=== PATIENT | male | born 1980 | race Native Hawaiian/Other Pacific Islander ===

== ENCOUNTER 2018-11-19 09:46 | Emergency (ER) | payer OTHER ==
[2018-11-19 09:58] VITALS: BP 139/115
[2018-11-19 10:29] LABS: Basophils % (Auto) 0.4 % (0.0-1.8); Eosinophils # (Auto) 0.1 K/mm3 (0.0-0.4); Eosinophils % (Auto) 0.8 % (0.0-4.3); Hematocrit 51.8 % (35.5-45.6); Hemoglobin 17.9 gm/dl (11.8-15.2); Lymphocytes # (Auto) 1.8 K/mm3 (1.2-5.4); Lymphocytes % (Auto) 18.3 % (13.4-35.0); Mean Corpuscular HGB Conc 35 % (32-34); Mean Corpuscular Volume 90 fl (84-94); Monocytes # (Auto) 0.5 K/mm3 (0.0-0.8); Monocytes % (Auto) 4.7 % (0.0-7.3); Platelet Count 239 K/mm3 (140-440); Red Blood Count 5.74 M/mm3 (3.65-5.03); Red Cell Distribution Width 13.2 % (13.2-15.2)
[2018-11-19] MEDS ORDERED: TORADOL IV ONE (10:32)
[2018-11-19] MEDS ORDERED: MORPHINE IV ONE (10:33)
--- NOTE | 2018-11-19 10:39 | Emergency Department Report ---
HPI - General Chief Complaint: Abdominal Pain Time Seen by Provider: 11/19/18 10:09 - HPI HPI: 38-year-old male presents to the emergency department, driving himself in to be seen, with complaint of some left mid back pain, left flank pain that has radiat ed around towards his abdomen. This started this morning and is currently 10 out of 10 in intensity. He denies any fever, nausea or vomiting, dysuria, hematuria. He denies any past medical history. He has not taken anything for his symptoms prior to arrival today. No primary care physician. ED Past Medical Hx - Social History Smoking Status: Never Smoker Substance Use Type: None - Medications Home Medications: Home Medications Medication Instructions Recorded Confirmed Last Taken Type Ibuprofen [Motrin 800 MG tab] 800 mg PO Q8HR PRN #20 tablet 11/19/18 Unknown Rx Sulfamethoxazole/Trimethoprim 1 each PO BID #10 tablet 11/19/18 Unknown Rx [Bactrim DS TAB] Tamsulosin [Flomax] 0.4 mg PO QDAY #5 cap 11/19/18 Unknown Rx ED Review of Systems ROS: Stated complaint: FLANK PAIN/LEFT SIDE Other details as noted in HPI Comment: All other systems reviewed and negative Constitutional: denies: chills, fever Respiratory: denies: cough, shortness of breath Cardiovascular: denies: chest pain, palpitations Gastrointestinal: abdominal pain. denies: nausea, vomiting Genitourinary: denies: dysuria, discharge Musculoskeletal: back pain. denies: arthralgia Skin: denies: rash, lesions Neurological: denies: headache, weakness Physical Exam - Physical Exam Vital Signs: Vital Signs 11/19/18 09:56 Temperature 98.1 F Pulse Rate 89 Respiratory 18 Rate Blood Pressure 139/115 O2 Sat by Pulse 96 Oximetry Physical Exam: GENERAL: The patient is well-developed well-nourished. HENT: Normocephalic. Atraumatic. Patient has moist mucous membranes. EYES: Extraocular motions are intact. NECK: Supple. Trachea is midline. CHEST/LUNGS: Clear to auscultation. There is no respiratory distress noted. HEART/CARDIOVASCULAR: Regular. There is no tachycardia. There is no murmur. ABDOMEN: Abdomen is soft. Unable to reproduce the patient's left-sided abdominal and flank pain to palpation. No guarding. Patient has normal bowel sounds. There is no abdominal distention. SKIN: Skin is warm and dry. NEURO: The patient is awake, alert, and oriented. The patient is cooperative. The patient has no focal neurologic deficits. The patient has normal speech. MUSCULOSKELETAL: There is no tenderness or deformity. There is no evidence of acute injury. ED Course Vital Signs 11/19/18 09:56 Temperature 98.1 F Pulse Rate 89 Respiratory 18 Rate Blood Pressure 139/115 O2 Sat by Pulse 96 Oximetry ED Medical Decision Making - Lab Data Result diagrams: 11/19/18 10:15 11/19/18 10:15 - Radiology Data Radiology results: report reviewed CT ABDOMEN AND PELVIS WITHOUT CONTRAST HISTORY: left flank pain COMPARISON: None. TECHNIQUE: Axial CT images were obtained through the abdomen and pelvis without IV contrast. Sagittal and coronal reformatted images. All CT scans at this location are performed using CT dose r eduction for ALARA by means of automated exposure control. FINDINGS: CT ABDOMEN: Lung Bases: Clear. Liver: Moderate diffuse fatty infiltration is noted throughout the liver. No enlargement or obvious mass. Biliary: No significant abnormality. Spleen: No significant abnormality. Unenlarged. Pancreas: No significant abnormality. Adrenals: No significant abnormality. Kidneys: A 3.3 mm calculus is identified in the distal left ureter. There is minimal upstream left hydronephrosis. No other renal or ureteral stones are identified. The kidneys are unremarkable. No cystic disease or mass is appreciated. Lymphatics: No lymphadenopathy. Vasculature: No significant abnormality. Bowel/Peritoneum: No significant abnormality. No free air. No free fluid. Normal appendix. CT PELVIS: : No significant abnormality. Osseous Structures: No significant abnormality. Additional Findings: None IMPRESSION: 3.3 mm distal left ureteral stone, minimally obstructing. Hepatic steatosis. - Medical Decision Making Patient presented with some acute left-sided mid back pain, left flank pain and left-sided abdominal pain. Labs show significant microscopic hematuria. He has some elevated liver enzymes. CT scan of the abdomen and pelvis without contrast was done that showed a 3.3 mm distal left ureteral stone that is minimally obstructing. Patient was given a dose of pain medication and anti- inflammatory. This did help with his discomfort. Vital signs stable throughout his ED course. With a kidney stone of this size, patient has a very high percent chance of passing the stone. He'll be discharged home with a prescription for Flomax, a short course of antibiotics, ibuprofen. He will be given a referral for urology and they strainer for his urine. He will return to the ER with any worsening of symptoms or any acute distress. - Differential Diagnosis nephrolithiasis, pyelonephritis, diverticulitis, shingles Critical Care Time: No Critical care attestation.: If time is entered above; I have spent that time in minutes in the direct care of this critically ill patient, excluding procedure time. ED Disposition Clinical Impression: Nephrolithiasis, Flank pain Hematuria Qualifiers: Hematuria type: unspecified type Qualified Code(s): R31.9 - Hematuria, unspecified Disposition: DC- TO HOME OR SELFCARE Is pt being admited?: No Condition: Stable Instructions: Kidney Stones (ED), Renal Colic (ED), How to Strain Your Urine (ED) Additional Instructions: Please follow up with a primary care physician in the next few days. I am giving you a referral for a local urologist, Dr. Sanders, to follow-up regarding your kidney stone. Return to the emergency Department with any worsening of your symptoms or any acute distress. Prescriptions: Sulfamethoxazole/Trimethoprim [Bactrim DS TAB] 1 each PO BID #10 tablet Tamsulosin [Flomax] 0.4 mg PO QDAY #5 cap Ibuprofen [Motrin 800 MG tab] 800 mg PO Q8HR PRN #20 tablet PRN Reason: Pain , Severe (7-10) Referrals: TORO SANDERS MD [Staff Physician] - 2-3 Days [facility] [Outside] - 2-3 Days Time of Disposition: 12:31
[2018-11-19 10:47] LABS: Alanine Aminotransferase 76 units/L (7-56); Albumin 5.2 g/dL (3.9-5); BUN/Creatinine Ratio 12; Blood Urea Nitrogen 11 mg/dL (9-20); Calcium 9.4 mg/dL (8.4-10.2); Hemolysis Index 45
[2018-11-19 12:15] LABS: Bilirubin,Urine NEG (Negative); Blood,Urine LG (Negative); Color,Urine Yellow (Yellow); Mucus,Urine 3+ /HPF; Urobilinogen,Urine < 2.0 mg/dL (<2.0)
[2018-11-19 12:16] LABS: RBC,Urine > 182.0 /HPF (0.0-6.0)
--- NOTE | 2018-11-19 12:23 | Cat Scan Report ---
CT ABDOMEN AND PELVIS WITHOUT CONTRAST HISTORY: left flank pain COMPARISON: None. TECHNIQUE: Axial CT images were obtained through the abdomen and pelvis without IV contrast. Sagittal and coronal reformatted images. All CT scans at this location are performed using CT dose reduction for ALARA by means of automated exposure control. FINDINGS: CT ABDOMEN: Lung Bases: Clear. Liver: Moderate diffuse fatty infiltration is noted throughout the liver. No enlargement or obvious m ass. Biliary: No significant abnormality. Spleen: No significant abnormality. Unenlarged. Pancreas: No significant abnormality. Adrenals: No significant abnormality. Kidneys: A 3.3 mm calculus is identified in the distal left ureter. There is minimal upstream left hy dronephrosis. No other renal or ureteral stones are identified. The kidneys are unremarkable. No cyst ic disease or mass is appreciated. Lymphatics: No lymphadenopathy. Vasculature: No significant abnormality. Bowel/Peritoneum: No significant abnormality. No free air. No free fluid. Normal appendix. CT PELVIS: : No significant abnormality. Osseous Structures: No significant abnormality. Additional Findings: None IMPRESSION: 3.3 mm distal left ureteral stone, minimally obstructing. Hepatic steatosis. Signer Name: Rafal Buitrago Jr, MD Signed: 11/19/2018 12:18 PM Workstation Name: [id number]
== END 2018-11-19 12:46 | disposition home or self-care (01) ==
LOC: ED 09:46
DX: N20.0 Calculus of kidney (principal); R31.29 Other microscopic hematuria; Z79.1 Long term (current) use of non-steroidal anti-inflammatories (NSAID); Z79.899 Other long term (current) drug therapy
CPT/HCPCS: 36415; 74176; 80053; 81001; 85025; 96374; 96375; 99284; J1885; J2270